=== PATIENT | male | born 1975 ===

== ENCOUNTER 2016-11-09 22:50 | Emergency (ER) | payer SELFPAY ==
[2016-11-09 22:56] VITALS: TEMP 98.3
[2016-11-09] MEDS ORDERED: Oxycodone/Acetaminophen 5/325 mg Tab PO STA (23:06)
[2016-11-09] MEDS ORDERED: Oxycodone/Acetaminophen 5/325 mg Tab ONE (23:19)
--- NOTE | 2016-11-09 23:35 | ED PDOC ---
HPI: Back Time Seen by Provider: 11/09/16 23:03 Chief Complaint (Nursing): Back Pain Chief Complaint (Provider): Low left back pain History Per: Patient History/Exam Limitations: no limitations Past Medical History Vital Signs: Last Vital Signs Temp 98.3 F 11/09/16 22:53 Pulse 71 11/09/16 22:53 Resp 16 11/09/16 22:53 BP 128/78 11/09/16 22:53 Pulse Ox 100 11/09/16 22:53 - Medical History PMH: HTN - Immunization History Hx Tetanus Toxoid Vaccination: No Hx Influenza Vaccination: No Hx Pneumococcal Vaccination: No - Home Medications Home Medications: Ambulatory Orders Medication Instructions Recorded Cyclobenzaprine [Cyclobenzaprine 10 mg PO TID #14 tab 06/24/16 HCl] Glimepiride 2 mg PO DAILY 06/24/16 Naproxen [Naprosyn] 1 tab PO BID PRN #20 tab 06/24/16 amLODIPine [Norvasc] 5 mg PO DAILY 06/24/16 Cyclobenzaprine [Cyclobenzaprine 10 mg PO Q8H PRN #12 tab 11/09/16 HCl] oxyCODONE/Acetaminophen [Percocet 1 ea PO Q6H PRN #15 tab 11/09/16 5/325 mg Tab] - Allergies Allergies/Adverse Reactions: Allergies Allergy/AdvReac Type Severity Reaction Status Date / Time No Known Allergies Allergy Verified 11/09/16 22:53 - ECG O2 Sat by Pulse Oximetry: 100 Medical Decision Making Medical Decision Making: Urine dip without blood. Disposition - Clinical Impression Clinical Impression: Back pain - Patient ED Disposition Is Patient to be Admitted: No Counseled Patient/Family Regarding: Diagnosis, Need For Followup, Rx Given - Disposition Referrals: [facility] [Outside] Disposition: Routine/Home Disposition Time: 23:33 Condition: GOOD Prescriptions: Cyclobenzaprine [Cyclobenzaprine HCl] 10 mg PO Q8H PRN #12 tab PRN Reason: Muscle Spasm oxyCODONE/Acetaminophen [Percocet 5/325 mg Tab] 1 ea PO Q6H PRN #15 tab PRN Reason: Pain, Severe (8-10) Instructions: Acute Low Back Pain (ED)
[2016-11-10 01:12] VITALS: BP 130/74; PULSE 77; RESP 17; O2SAT 99
== END 2016-11-09 23:56 | disposition home or self-care (01) ==
LOC: H.ER 22:50
DX: M54.5 Low back pain (principal); I10 Essential (primary) hypertension

== ENCOUNTER 2017-04-07 22:50 | Emergency (ER) | payer SELFPAY ==
[2017-04-07 23:29] VITALS: BP 142/83; PULSE 79; RESP 17; TEMP 97.2; O2SAT 97
--- NOTE | 2017-04-08 02:18 | ED PDOC ---
HPI: Back Time Seen by Provider: 04/08/17 01:34 Chief Complaint (Nursing): Back Pain Chief Complaint (Provider): Back Pain History Per: Patient History/Exam Limitations: no limitations Onset/Duration Of Symptoms: Days (x3), Sudden Onset Current Symptoms Are (Timing): Still Present Previous Symptoms: Chronic Pain Additional Complaint(s): 42 year old male presents to ED with complaints of [id number] lower back pain x3 days and has a history of lower back pain, HTN, and DM. Notes no relief of symptoms with Naproxen or ibuprofen. States pain is worse with movement. (-) pain radiation to lower extremities, changes in bladder/bowel function, or loss in sensation. PCP: None Past Medical History Reviewed: Historical Data, Nursing Documentation, Vital Signs Vital Signs: Last Vital Signs Temp 97.2 F L 04/07/17 23:25 Pulse 79 04/07/17 23:25 Resp 17 04/07/17 23:25 BP 142/83 04/07/17 23:25 Pulse Ox 97 04/07/17 23:25 - Medical History PMH: Diabetes, HTN Denies: No Chronic Diseases - Family History Family History: States: Unknown Family Hx - Living Arrangements Living Arrangements: With Family - Immunization History Hx Tetanus Toxoid Vaccination: No Hx Influenza Vaccination: No Hx Pneumococcal Vaccination: No - Home Medications Home Medications: Ambulatory Orders Medication Instructions Recorded Glimepiride 2 mg PO DAILY 06/24/16 amLODIPine [Norvasc] 5 mg PO DAILY 06/24/16 Cyclobenzaprine [Cyclobenzaprine 10 mg PO BID #15 tab 04/08/17 HCl] Ketorolac Tromethamine [Toradol] 10 mg PO BID #30 tab 04/08/17 - Allergies Allergies/Adverse Reactions: Allergies Allergy/AdvReac Type Severity Reaction Status Date / Time No Known Allergies Allergy Verified 11/09/16 22:53 Review of Systems ROS Statement: Except As Marked, All Systems Reviewed And Found Negative Genitourinary Male: Negative for: Incontinence Musculoskeletal: Positive for: Back Pain. Negative for: Leg Pain, Foot Pain Neurological: Negative for: Numbness Physical Exam - Reviewed Nursing Documentation Reviewed: Yes Vital Signs Reviewed: Yes - Physical Exam Appears: Positive for: Non-toxic, No Acute Distress Skin: Positive for: Normal Color, Warm, Dry Neck: Positive for: Normal, Painless ROM, Supple Cardiovascular/Chest: Positive for: Regular Rate, Rhythm. Negative for: Murmur Respiratory: Positive for: Normal Breath Sounds. Negative for: Respiratory Distress Back: Negative for: Normal Inspection (lumbar paravertebral musculature TTP), L CVA Tenderness, R CVA Tenderness, Vertebral Tenderness Extremity: Positive for: Normal ROM. Negative for: Deformity Neurologic/Psych: Positive for: Alert, fleet sales manager II-XII (intact), Oriented. Negative for: Motor/Sensory Deficits ((-) saddle anaesthesia) - ECG O2 Sat by Pulse Oximetry: 97 (RA) Pulse Ox Interpretation: Normal Medical Decision Making Medical Decision Makin Initial impression: musculoskeletal back pain Initial plan: * UDip * Flexeril 10mg PO * Toradol 60mg IM * Re-eval 3AM Pt. feeling better, does not wish to wait for urine study or xray. Will d/c home. Return precautions [email or web address] Scribe Attestation: Documented by Janet Garcia acting as a scribe for Antoni Gardner MD. Scribe Attestation: All medical record entries made by the Scribe were at my direction and personally dictated by me. I have reviewed the chart and agree that the record accurately reflects my personal performance of the history, physical exam, medical decision making, and the department course for this patient. I have also personally directed, reviewed, and agree with the discharge instructions and disposition. Disposition - Clinical Impression Clinical Impression: Chronic back pain - Disposition Referrals: [facility] [Outside] Disposition: Routine/Home Disposition Time: 03:00 Condition: STABLE Prescriptions: Cyclobenzaprine [Cyclobenzaprine HCl] 10 mg PO BID #15 tab Ketorolac Tromethamine [Toradol] 10 mg PO BID #30 tab Instructions: Acute Low Back Pain (GEN) Forms: [employer] ([place]), [facility] ED School/Work Excuse
== END 2017-04-08 03:45 | disposition home or self-care (01) ==
LOC: H.ER 22:50
DX: G89.29 Other chronic pain (principal); E11.9 Type 2 diabetes mellitus without complications; I10 Essential (primary) hypertension
CPT/HCPCS: 96372; 99282; J1885